=== PATIENT | male | born 1990 | race Hispanic/Latino ===

== ENCOUNTER 2019-11-19 16:27 | Emergency (ER) | payer SELFPAY ==
--- NOTE | 2019-11-19 17:23 | Emergency Department Report ---
Chief Complaint: Extremity Problem,Nontraumatic Stated Complaint: ANKLE PAIN Time Seen by Provider: 11/19/19 16:38 - HPI History of Present Illness: 29-year-old male presents to the emergency room complaining of bilateral ankle swelling. Patient states that he has been walking from [place] to [facility]. Patient reports that he was seen at [place] today for mental issues and now comes to this ER complaining of bilateral ankle swelling from walking too much. Patient reports a past medical history of bipolar currently not taking his medications. Patient denies any suicidal homicidal ideation. Patient reports he does not want to go to [place] as he hates that place. - Exam Physical Exam: Patient is alert and oriented x3 no acute distress Lower extremities bilateral feet and ankle mild swelling less than 1+ pitting edema nonerythematous no open wounds no open skin. Patient denies any suicidal homicidal ideation. [facility] screening note: Focused history and physical exam performed. Due to findings the following was ordered: 29-year-old male presents to the emergency room complaining of bilateral ankle swelling. Patient states that he has been walking from [place] to [facility]. Patient reports that he was seen at [place] today for mental issues and now comes to this ER complaining of bilateral ankle swelling from walking too much. Patient reports a past medical history of bipolar currently not taking his medications. Patient denies any suicidal homicidal ideation. Patient reports he does not want to go to [place] as he hates that place. Discussed with patient to avoid walking too much. Keep feet clean and dry elevate avoid sodium intakes such as preservative foods table salt canned foods. Follow-up with his primary care provider and his mental health provider. ED Disposition for [facility] Disposition: Z- MED SCREENING EXAM-LEFT Is pt being admited?: No Does the pt Need Aspirin: No Condition: Stable Additional Instructions: Discussed with patient to avoid walking too much. Keep feet clean and dry elevate avoid sodium intakes such as preservative foods table salt canned foods. Follow-up with his primary care provider and his mental health provider. Referrals: [facility] [Outside] - 3-5 Days [facility] [Provider Group] - 3-5 Days
--- NOTE | 2019-11-19 17:23 | Emergency Department Report ---
Chief Complaint: Extremity Problem,Nontraumatic Stated Complaint: ANKLE PAIN Time Seen by Provider: 11/19/19 16:38 MSE screening note: Focused history and physical exam performed. Due to findings the following was ordered: ED Disposition for MSE Condition: Stable
== END 2019-11-19 18:32 | disposition left against medical advice (07) ==
LOC: ED 16:27
DX: M25.472 Effusion, left ankle (principal); M25.471 Effusion, right ankle
CPT/HCPCS: 99281